=== PATIENT | female | born 2000 | race Caucasian/White ===

== ENCOUNTER → 2020-05-23 | Outpatient (CLI) | payer OTHER | LOC: NM 04-30 09:00 | DX: R10.13 Epigastric pain (principal) | CPT/HCPCS: 78227; A9537; J2805 ==

== ENCOUNTER → 2021-09-18 | Outpatient (CLI) | payer OTHER | LOC: KOH-I 13:00 | DX: R10.9 Unspecified abdominal pain (principal); R14.3 Flatulence | CPT/HCPCS: 74018 ==